=== PATIENT | female | born 1990 | race Caucasian/White ===

== ENCOUNTER 2023-09-29 18:29 | Outpatient (CLI) | payer BC, SELFPAY ==
[2023-09-29 17:22] LABS: TSH (W/Ref FT4) 0.65 uIU/mL (0.36-3.74)
[2023-10-02 10:56] LABS: Thyroglobulin Antibody <15 U/mL (<=60); Thyroperoxidase Antibody <28 U/mL (<=60)
[2023-10-02 20:23] LABS: Beta 2 Glycoprotein 1 Ab IgA <9.4 SAU
[2023-10-03 20:21] LABS: Phospholipid Ab, IgG <9.4 GPL; Phospholipid Ab, IgM <9.4 MPL
[2023-10-04 11:21] LABS: Activated Partial Thrombo Time 32 sec (25 - 37); DRVVT Screen Ratio 0.92 ratio (<1.20); INR 1.1 (0.9-1.1); Prothrombin Time (PT) 11.7 sec (9.4 - 12.5)
== END 2023-09-29 18:30 | disposition home or self-care (01) ==
LOC: LBO 18:30
PROVIDERS: Visit Provider Obstetrics & Gynecology
DX: N96 Recurrent pregnancy loss (principal)
CPT/HCPCS: 36415; 85390; 85610; 85613; 85730; 86146; 86147; 86376; 84443

== ENCOUNTER 2024-02-02 02:04 | Outpatient (CLI) | payer BC, SELFPAY ==
[2024-02-02 16:05] LABS: Panorama Kit Sent via Fed Ex
[2024-02-02 16:08] LABS: Abs Immature Grans 0.04 10^3/uL (0.0-0.06); Absolute Basophil Count 0.01 10^3/uL (0.0-0.2); Absolute Eosinophil Count 0.11 10^3/uL (0.0-0.7); Absolute Lymphocyte Count 2.08 10^3/uL (1.2-3.4); Absolute Monocyte Count 0.54 10^3/uL (0.1-0.8); Absolute Neutrophil Count 7.07 10^3/uL (1.2-6.7); Basophils % 0.1; Eosinophils % 1.1; HCT 37.4 % (36.0-46.0); HGB 12.7 g/dL (11.2-15.7); Immature Grans % 0.4; Lymphocytes % 21.1; MCH 29.1 pg (27.0-33.0); MCV 86 fL (80-95); MPV 8.7 fL (8.0-11.0); Monocytes % 5.5; Neutrophils % 71.8; Platelet Count 232 10^3/uL (130-400); RBC 4.37 10^6/uL (3.93-5.22); RDW 12.6 % (11.7-14.6); WBC 9.85 10^3/uL (4.4-10.8)
[2024-02-02 16:18] LABS: Glucose,1 Hr (Glucola) 143 mg/dL (80-140)
[2024-02-05 10:05] LABS: Hepatitis B Surface Ag Negative (Negative)
[2024-02-05 10:31] LABS: Varicella IgG Antibody Positive (See Note)
[2024-02-05 10:33] LABS: Rubella IgG Ab (UVM) Positive (See Note)
[2024-02-05 10:34] LABS: Hepatitis C Ab w Rflx HCV PCR Negative (Negative)
[2024-02-05 10:44] LABS: HIV-1/2 Ag & Ab Screen Negative (Negative)
[2024-02-06 14:48] LABS: Syphilis IgG w/Reflex Nonreactive (Nonreactive)
== END 2024-02-02 02:05 | disposition home or self-care (01) ==
LOC: LBO 02:04
PROVIDERS: Advanced Practice Midwife; Visit Provider Advanced Practice Midwife
DX: Z34.91 Encounter for supervision of normal pregnancy, unspecified, first trimester (principal)
CPT/HCPCS: 36415; 82950; 86787; 86803; 86850; 86900; 86901; 87340; 87389; 85025; 86762; 86780; 87086

== ENCOUNTER 2024-02-02 16:17 | Outpatient (REF) | payer BC, SELFPAY ==
--- NOTE | 2024-02-02 15:00 | PAPFT_PTH ---
PATIENT: Teresa Li LOC: [facility] U#:[id number] AGE/SX: 33/F ROOM: RE02/02/[address]: Indigo Ocasio CNM : 1990 BED: DIS: 02/02/2024 SPEC #: [id number] RECD: 02/02/24 16:51 STATUS: MELINDA REQ #: [id number] NABEEL: 02/02/24 15:[address]: Indigo Ocasio DEPT: [facility] Cytology RECD BY: Joyce Zaidi ENTERED: 02/02/24 16:51 SP TYPE: PAPFT OTHR DR: Unknown,Unknown Tissues: 1 - CX/ENDOCX FOR PAP SMEARS Procedures: PAP THIN PREP/[facility] Screening HPV DNA PROBE Comments: [id number] (CHLAMYDIA/GC)
[2024-02-05 16:36] LABS: Chlamydia Result Negative (Negative); GC Result Negative (Negative)
== END 2024-02-02 16:18 | disposition home or self-care (01) ==
LOC: LBN 16:17
PROVIDERS: Visit Provider Advanced Practice Midwife
DX: Z34.91 Encounter for supervision of normal pregnancy, unspecified, first trimester (principal)
CPT/HCPCS: 87491; 87591; 88142; 87624

== ENCOUNTER 2024-02-09 01:13 | Outpatient (CLI) | payer BC, SELFPAY ==
[2024-02-09 09:06] LABS: Glucose 1 Hour 210 mg/dL
[2024-02-09 11:08] LABS: Glucose 3 Hour 55 mg/dL
== END 2024-02-09 01:14 | disposition home or self-care (01) ==
LOC: LBO 01:13
PROVIDERS: Visit Provider Advanced Practice Midwife
DX: R73.09 Other abnormal glucose (principal); Z34.91 Encounter for supervision of normal pregnancy, unspecified, first trimester; Z3A.11 11 weeks gestation of pregnancy
CPT/HCPCS: 36415; 82951